=== PATIENT | female | born 1960 | race Caucasian/White ===

== ENCOUNTER 2018-04-01 16:31 | Emergency (ER) | payer OTHER ==
[~2018-04-01] VITALS: Ht 175.3 cm; Wt 70.8 kg
[~2018-04-01 16:31] MED LIST: LAMO100T2 PO; LURA40TA PO
[2018-04-01 16:42] VITALS: BP 98/67
[2018-04-01] MEDS ORDERED: DEXAMETHASONE SOD PHOSPHATE 10 MG/ML VIAL ONE (17:13)
[2018-04-01] MEDS ORDERED: DEXAMETHASONE SOD PHOSPHATE 4 MG/ML VIAL IM ONE (17:30)
== END 2018-04-01 17:37 | disposition home or self-care (01) ==
LOC: ER 16:32
DX: T78.49XA Other allergy, initial encounter (principal); F32.9 Major depressive disorder, single episode, unspecified; F41.9 Anxiety disorder, unspecified; M48.00 Spinal stenosis, site unspecified; F17.200 Nicotine dependence, unspecified, uncomplicated; Z79.899 Other long term (current) drug therapy; X58.XXXA Exposure to other specified factors, initial encounter
CPT/HCPCS: 96372; 99283; A4606; J1100; Z7610

== ENCOUNTER 2018-04-16 17:27 | Emergency (ER) | payer OTHER ==
[~2018-04-16] VITALS: Ht 175.3 cm; Wt 70.3 kg
[2018-04-16 17:27] VITALS: BP 109/91
--- NOTE | 2018-04-16 17:34 | NUR ---
ANA MARIA AT BEDSIDE
== END 2018-04-16 18:03 | disposition home or self-care (01) ==
LOC: ER 17:28
DX: Z00.00 Encounter for general adult medical examination without abnormal findings (principal); M48.00 Spinal stenosis, site unspecified; F41.9 Anxiety disorder, unspecified; F32.9 Major depressive disorder, single episode, unspecified; F41.0 Panic disorder [episodic paroxysmal anxiety]; F17.200 Nicotine dependence, unspecified, uncomplicated; Z60.2 Problems related to living alone
CPT/HCPCS: A4606; Z7502; Z7610